=== PATIENT | male | born 1980 | race Caucasian/White ===

== ENCOUNTER 2020-08-03 12:04 | Outpatient (CLI) | payer OTHER | END 2020-08-03 12:05 | disposition home or self-care (01) | LOC: CSHCT 12:04 | PROVIDERS: ATTEND Family Medicine | DX: L03.316 Cellulitis of umbilicus (principal) | CPT/HCPCS: 74177 ==

== ENCOUNTER 2023-09-05 08:01 | Outpatient (CLI) | payer BC ==
[2023-09-05] MEDS ORDERED: Iopamidol 300 61% 100 ML VIAL FS ONE (10:26)
== END 2023-09-05 08:02 | disposition home or self-care (01) ==
LOC: CSHCT 08:01
PROVIDERS: ATTEND Otolaryngology Otolaryngic Allergy
DX: M54.2 Cervicalgia (principal)
CPT/HCPCS: 70491